=== PATIENT | female | born 1925 | race African-American/Black ===

== ENCOUNTER 2017-05-05 21:42 | Inpatient (IN) | payer MEDICARE, MEDICAID ==
[~2017-05-05] VITALS: Ht 160 cm; Wt 47.8 kg
[~2017-05-05 21:42] MED LIST: ASPI-1079 PO; ASPI-986 PO; CLOP75TA33 PO; DIPH50TA19 PO; ESOM5SUS PO; LORA0.5T2 PO; LORA1TAB PO; MEMA10TA2 PO; MULT-904 PO; MULT1TAB63 PO; NITR0.4T SL; OMEP40CA34 PO; SERT-112 PO; SERT25TA74 PO
[2017-05-05 22:36] LABS: BG BASE EXCESS -9.1 mmol/L (-2.0-2.0); BG CARBOXYHEMOGLOBIN 0.3 % (0.5-1.5); BG DEOXYHEMOGLOBIN 1.4 % (0.0-5.0); BG FRACTION INSPIRED OXYGEN 100; BG METHEMOGLOBIN 0.1 % (0.0-1.5); BG OXYGEN SATURATION 98.6 % (92.0-98.5); BG OXYHEMOGLOBIN 98.2 % (94.0-97.0); BG PCO2 31.9 mmHg (35.0-45.0); BG PH 7.318 (7.350-7.450); BG PO2 218.5 mmHg (75.0-100.0); BG SAMPLE SITE RIGHT RADIAL; BG TOTAL HEMOGLOBIN 9.8 g/dL (12.0-18.0); BG VENT MODE MASK - NRB
[2017-05-05 22:44] LABS: HEMATOCRIT. 33.4 % (36.0-48.0); HEMOGLOBIN. 10.7 g/dL (12.0-16.0); MEAN CORPUSCULAR HEMOGLOBIN 29.3 pg (28.0-32.0); MEAN CORPUSCULAR VOLUME 91.6 fL (81.0-99.0); MEAN PLATELET VOLUME 10.7 fl (7.4-10.4); PLATELET 235 x1000/uL (130-400); RED BLOOD CELL COUNT 3.65 mill/uL (4.2-5.4); RED CELL DISTRIBUTION WIDTH 18.4 % (11.6-14.6)
[2017-05-05 22:50] LABS: CHLORIDE 115 mEq/L (98-107)
[2017-05-05 22:54] LABS: CARBON DIOXIDE 18 mEq/L (21-32); INR 1.3; PROTHROMBIN TIME 13.5 sec (9.4-11.6)
[2017-05-05 22:58] LABS: PLATELET ESTIMATE NORMAL
[2017-05-05] MEDS ORDERED: VANCOMYCIN 1 G PREMIX 200 ML IV SCH (23:00)
[2017-05-06] VITALS (17 sets, daily range): BP systolic 93–122; BP diastolic 36–54
[2017-05-06] MEDS ORDERED: SODIUM CHLORIDE 0.9% 1,000 ML IV ONE (00:08)
[2017-05-06] MEDS ORDERED: PIPERACILLIN/TAZOBACTAM 3.375GM/50ML PREMIX IV SCH (00:23)
[2017-05-06] MEDS ORDERED: IPRATROPIUM/ALBUTEROL 0.5-3(2.5)MG/3ML NEB INH PRN (06:45)
[2017-05-06] MEDS ORDERED: GUAIFENESIN 200MG/10ML SUGAR FREE UDC PO PRN (06:45)
[2017-05-06 07:26] LABS: CLARITY URINE CLOUDY (CLEAR); COLOR URINE YELLOW (YELLOW); GLUCOSE URINE NEGATIVE (NEGATIVE); KETONES URINE NEGATIVE (NEGATIVE); LEUKOCYTE ESTERASE URINE TRACE (NEGATIVE); NITRITE URINE NEGATIVE (NEGATIVE); OCCULT BLOOD URINE TRACE (NEGATIVE); PH URINE 5.5 (4.5-8.0); PROTEIN URINE TRACE (NEGATIVE); SPECIFIC GRAVITY URINE 1.023 (1.005-1.030); UROBILINOGEN URINE 0.2 E.U./dL (0.2-1.0)
[2017-05-06] MEDS: DEXT 5%/0.45% NACL 1000ML 1,000 ML IV SCH ×2 (08:00→20:03)
[2017-05-06] MEDS: ASPIRIN 81MG EC TABLET PO SCH (09:00)
[2017-05-06] MEDS ORDERED: PIPERACILLIN/TAZ 3.375G PREMIX 50 ML IV SCH (09:00)
[2017-05-06] MEDS: ENOXAPARIN 30MG/0.3ML SYR SUBCUT SCH (09:50)
[2017-05-06] MEDS ORDERED: VANCOMYCIN 500 MG PREMIX 100 ML IV SCH ×2 (16:00→18:00)
[2017-05-06] MEDS: PIPERACILLIN/TAZ 2.25G PREMIX 50 ML IV SCH ×2 (17:23→23:51)
[2017-05-07] VITALS (11 sets, daily range): BP systolic 107–130; BP diastolic 46–57
[2017-05-07 06:35] LABS: HEMATOCRIT. 27.4 % (36.0-48.0); HEMOGLOBIN. 8.9 g/dL (12.0-16.0); MEAN CORPUSCULAR HEMOGLOBIN 29.5 pg (28.0-32.0); MEAN CORPUSCULAR VOLUME 90.4 fL (81.0-99.0); MEAN PLATELET VOLUME 10.9 fl (7.4-10.4); PLATELET 239 x1000/uL (130-400); RED BLOOD CELL COUNT 3.03 mill/uL (4.2-5.4); RED CELL DISTRIBUTION WIDTH 17.8 % (11.6-14.6)
[2017-05-07 07:10] LABS: CARBON DIOXIDE 17 mEq/L (21-32); CHLORIDE 117 mEq/L (98-107)
[2017-05-07 07:18] LABS: HDL CHOLESTEROL 30 mg/dL (40-59); LDL CHOLESTEROL 23 mg/dL (5-100)
[2017-05-07] MEDS: PIPERACILLIN/TAZ 2.25G PREMIX 50 ML IV SCH ×3 (07:47→22:24)
[2017-05-07] MEDS: DEXT 5%/0.45% NACL 1000ML 1,000 ML IV SCH ×2 (09:23→22:25)
[2017-05-07 10:15] LABS: BG BASE EXCESS -8.2 mmol/L (-2.0-2.0); BG FRACTION INSPIRED OXYGEN 21; BG HCO3 ACT 14.9 mmol/L (22.0-26.0); BG METHEMOGLOBIN 0.1 % (0.0-1.5); BG OXYHEMOGLOBIN 95.9 % (94.0-97.0); BG PCO2 23.5 mmHg (35.0-45.0); BG PH 7.421 (7.350-7.450); BG PO2 81.9 mmHg (75.0-100.0); BG SAMPLE SITE RIGHT BRACHIAL; BG TOTAL HEMOGLOBIN 9.3 g/dL (12.0-18.0); BG VENT MODE ROOM AIR
[2017-05-07] MEDS: ASPIRIN 81MG EC TABLET PO SCH (10:40)
[2017-05-07] MEDS: ENOXAPARIN 30MG/0.3ML SYR SUBCUT SCH (10:40)
[2017-05-07 11:59] LABS: PLATELET ESTIMATE NORMAL
[2017-05-07] MEDS ORDERED: KCL 20MEQ/100ML PREMIX 100 ML IV NR (13:00)
[2017-05-07] MEDS: VANCOMYCIN 500 MG PREMIX 100 ML IV SCH (14:15)
[2017-05-07] MEDS: ACETAMINOPHEN 325MG TABLET PO PRN (15:39)
[2017-05-08] VITALS (12 sets, daily range): BP systolic 110–140; BP diastolic 44–61
[2017-05-08] MEDS: ONDANSETRON HCL 4MG/2ML VIAL IV PRN (04:48)
[2017-05-08] MEDS: ACETAMINOPHEN 325MG TABLET PO PRN (04:48)
[2017-05-08] MEDS: PIPERACILLIN/TAZ 2.25G PREMIX 50 ML IV SCH ×3 (06:08→21:17)
[2017-05-08 07:14] LABS: CARBON DIOXIDE 17 mEq/L (21-32); CHLORIDE 119 mEq/L (98-107)
[2017-05-08] MEDS: VANCOMYCIN 500 MG PREMIX 100 ML IV SCH (08:16)
[2017-05-08] MEDS: ASPIRIN 81MG EC TABLET PO SCH (08:16)
[2017-05-08] MEDS: ENOXAPARIN 30MG/0.3ML SYR SUBCUT SCH (08:17)
[2017-05-08] MEDS: DEXT 5%/0.45% NACL 1000ML 1,000 ML IV SCH (08:17)
[2017-05-08] MEDS ORDERED: POTASSIUM CHLORIDE 20MEQ TABLET SR PO NR (11:45)
[2017-05-09] VITALS (12 sets, daily range): BP systolic 114–153; BP diastolic 52–71
[2017-05-09] MEDS: DEXT 5%/0.45% NACL 1000ML 1,000 ML IV SCH ×2 (02:19→13:49)
[2017-05-09] MEDS: VANCOMYCIN 500 MG PREMIX 100 ML IV SCH ×2 (02:19→20:06)
[2017-05-09] MEDS: PIPERACILLIN/TAZ 2.25G PREMIX 50 ML IV SCH ×3 (05:03→21:46)
[2017-05-09 05:47] LABS: HEMATOCRIT. 25.2 % (36.0-48.0); HEMOGLOBIN. 8.2 g/dL (12.0-16.0); MEAN CORPUSCULAR HEMOGLOBIN 29.4 pg (28.0-32.0); MEAN PLATELET VOLUME 10.9 fl (7.4-10.4); PLATELET 266 x1000/uL (130-400); RED CELL DISTRIBUTION WIDTH 18.2 % (11.6-14.6)
[2017-05-09 06:51] LABS: CARBON DIOXIDE 16 mEq/L (21-32); CHLORIDE 118 mEq/L (98-107)
[2017-05-09] MEDS: ASPIRIN 81MG EC TABLET PO SCH (08:53)
[2017-05-09] MEDS: ENOXAPARIN 30MG/0.3ML SYR SUBCUT SCH (09:01)
[2017-05-09] MEDS ORDERED: POTASSIUM CHLORIDE 20MEQ/PACKET PO NR (11:18)
[2017-05-09] MEDS ORDERED: MORPHINE SULFATE 2 MG/ML CPJ (NOT FOR IM USE) IV ONE (14:00)
[2017-05-09] MEDS: MORPHINE SULFATE 4 MG/ML CPJ (NOT FOR IM USE) IV PRN (14:12)
[2017-05-09 16:41] LABS: PLATELET ESTIMATE NORMAL
[2017-05-09] MEDS ORDERED: SODIUM CHLORIDE 10% FOR INH 15ML VIAL NEB INH NR (17:30)
[2017-05-10] VITALS (11 sets, daily range): BP systolic 129–158; BP diastolic 59–88
[2017-05-10] MEDS: MORPHINE SULFATE 4 MG/ML CPJ (NOT FOR IM USE) IV PRN (03:51)
[2017-05-10] MEDS: DEXT 5%/0.45% NACL 1000ML 1,000 ML IV SCH ×2 (04:03→17:23)
[2017-05-10] MEDS: PIPERACILLIN/TAZ 2.25G PREMIX 50 ML IV SCH ×3 (06:17→22:08)
[2017-05-10 06:18] LABS: HEMATOCRIT. 26.8 % (36.0-48.0); HEMOGLOBIN. 8.6 g/dL (12.0-16.0); MEAN CORPUSCULAR HEMOGLOBIN 29.4 pg (28.0-32.0); MEAN PLATELET VOLUME 10.5 fl (7.4-10.4); PLATELET 269 x1000/uL (130-400); RED BLOOD CELL COUNT 2.92 mill/uL (4.2-5.4); RED CELL DISTRIBUTION WIDTH 18.5 % (11.6-14.6)
[2017-05-10 07:09] LABS: CARBON DIOXIDE 16 mEq/L (21-32); CHLORIDE 116 mEq/L (98-107)
[2017-05-10] MEDS: ASPIRIN 81MG EC TABLET PO SCH (09:32)
[2017-05-10] MEDS: ENOXAPARIN 30MG/0.3ML SYR SUBCUT SCH (09:33)
[2017-05-10] MEDS: VANCOMYCIN 500 MG PREMIX 100 ML IV SCH (15:29)
[2017-05-10 16:32] LABS: PLATELET ESTIMATE NORMAL
[2017-05-11] VITALS (13 sets, daily range): BP systolic 120–162; BP diastolic 60–73
[2017-05-11] MEDS: CLONIDINE 0.1MG TABLET PO PRN (05:02)
[2017-05-11] MEDS: PIPERACILLIN/TAZ 2.25G PREMIX 50 ML IV SCH ×3 (06:02→23:26)
[2017-05-11] MEDS: DEXT 5%/0.45% NACL 1000ML 1,000 ML IV SCH ×2 (06:54→23:27)
[2017-05-11] MEDS: ASPIRIN 81MG EC TABLET PO SCH (08:41)
[2017-05-11] MEDS: VANCOMYCIN 500 MG PREMIX 100 ML IV SCH (08:41)
[2017-05-11] MEDS: ENOXAPARIN 30MG/0.3ML SYR SUBCUT SCH (08:41)
[2017-05-11] MEDS ORDERED: LIDOCAINE HCL 1% 20ML VIAL (Pyxis) INJ ONE (15:04)
[2017-05-11 17:01] LABS: HEMATOCRIT. 33.1 % (36.0-48.0); HEMOGLOBIN. 10.7 g/dL (12.0-16.0); MEAN CORPUSCULAR HEMOGLOBIN 29.4 pg (28.0-32.0); MEAN CORPUSCULAR VOLUME 91.2 fL (81.0-99.0); MEAN PLATELET VOLUME 10.6 fl (7.4-10.4); PLATELET 330 x1000/uL (130-400); RED BLOOD CELL COUNT 3.63 mill/uL (4.2-5.4); RED CELL DISTRIBUTION WIDTH 18.6 % (11.6-14.6)
[2017-05-11 18:11] LABS: PLATELET ESTIMATE NORMAL
[2017-05-12] VITALS (10 sets, daily range): BP systolic 114–164; BP diastolic 54–86
[2017-05-12] MEDS: VANCOMYCIN 500 MG PREMIX 100 ML IV SCH ×2 (02:18→20:36)
[2017-05-12] MEDS: ENOXAPARIN 30MG/0.3ML SYR SUBCUT SCH (09:15)
[2017-05-12] MEDS: ASPIRIN 81MG EC TABLET PO SCH (09:15)
[2017-05-12] MEDS: MORPHINE SULFATE 4 MG/ML CPJ (NOT FOR IM USE) IV PRN ×2 (09:21→18:42)
[2017-05-12] MEDS: DEXT 5%/0.45% NACL 1000ML 1,000 ML IV SCH (09:23)
[2017-05-12 12:11] LABS: HEMATOCRIT. 31.1 % (36.0-48.0); HEMOGLOBIN. 10.2 g/dL (12.0-16.0); MEAN CORPUSCULAR HEMOGLOBIN 29.8 pg (28.0-32.0); MEAN CORPUSCULAR VOLUME 90.5 fL (81.0-99.0); MEAN PLATELET VOLUME 9.7 fl (7.4-10.4); PLATELET 302 x1000/uL (130-400); RED BLOOD CELL COUNT 3.43 mill/uL (4.2-5.4); RED CELL DISTRIBUTION WIDTH 18.7 % (11.6-14.6)
[2017-05-12] MEDS: PIPERACILLIN/TAZ 2.25G PREMIX 50 ML IV SCH ×2 (14:36→22:11)
[2017-05-12 14:53] LABS: PLATELET ESTIMATE NORMAL
[2017-05-12] MEDS: CLONIDINE 0.1MG TABLET PO PRN (22:17)
[2017-05-12] MEDS: ONDANSETRON HCL 4MG/2ML VIAL IV PRN (22:17)
[2017-05-12] MEDS: ACETAMINOPHEN 325MG TABLET PO PRN (22:23)
[2017-05-13] VITALS (12 sets, daily range): BP systolic 116–160; BP diastolic 47–69
[2017-05-13] MEDS: DEXT 5%/0.45% NACL 1000ML 1,000 ML IV SCH ×2 (02:49→13:26)
[2017-05-13] MEDS: PIPERACILLIN/TAZ 2.25G PREMIX 50 ML IV SCH ×3 (05:04→22:05)
[2017-05-13] MEDS: ENOXAPARIN 30MG/0.3ML SYR SUBCUT SCH (08:55)
[2017-05-13] MEDS: ASPIRIN 81MG EC TABLET PO SCH (08:55)
[2017-05-13] MEDS ORDERED: DEXTROSE 50% WATER 50ML SYRINGE IV PRN (13:30)
[2017-05-13] MEDS: VANCOMYCIN 500 MG PREMIX 100 ML IV SCH (14:30)
[2017-05-13] MEDS: MORPHINE SULFATE 4 MG/ML CPJ (NOT FOR IM USE) IV PRN ×2 (14:31→20:10)
[2017-05-13 16:10] LABS: CARBON DIOXIDE 15 mEq/L (21-32); CHLORIDE 112 mEq/L (98-107)
[2017-05-13 16:26] LABS: HEMATOCRIT. 28.4 % (36.0-48.0); HEMOGLOBIN. 9.2 g/dL (12.0-16.0); MEAN CORPUSCULAR HEMOGLOBIN 29.4 pg (28.0-32.0); MEAN PLATELET VOLUME 10.3 fl (7.4-10.4); PLATELET 303 x1000/uL (130-400); RED BLOOD CELL COUNT 3.13 mill/uL (4.2-5.4); RED CELL DISTRIBUTION WIDTH 18.1 % (11.6-14.6)
[2017-05-13 17:17] LABS: PLATELET ESTIMATE NORMAL
[2017-05-13] MEDS: BLOOD SUGAR DIAGNOSTIC STRIP TEST SCH ×2 (18:28→20:08)
[2017-05-13] MEDS ORDERED: POTASSIUM CHLORIDE 20MEQ TABLET SR PO NR (21:00)
[2017-05-14] VITALS (11 sets, daily range): BP systolic 121–191; BP diastolic 54–74
[2017-05-14] MEDS: MORPHINE SULFATE 4 MG/ML CPJ (NOT FOR IM USE) IV PRN ×2 (02:06→12:19)
[2017-05-14] MEDS: PIPERACILLIN/TAZ 2.25G PREMIX 50 ML IV SCH (05:16)
[2017-05-14 07:46] LABS: CARBON DIOXIDE 12 mEq/L (21-32); CHLORIDE 112 mEq/L (98-107); VANCOMYCIN TROUGH 22.6 ug/mL (5.0-10.0)
[2017-05-14] MEDS: BLOOD SUGAR DIAGNOSTIC STRIP TEST SCH ×3 (07:57→16:40)
[2017-05-14] MEDS: VANCOMYCIN 500 MG PREMIX 100 ML IV SCH (08:51)
[2017-05-14] MEDS: ASPIRIN 81MG EC TABLET PO SCH (08:51)
[2017-05-14] MEDS: ENOXAPARIN 30MG/0.3ML SYR SUBCUT SCH (08:52)
[2017-05-14] MEDS: DEXT 5%/0.45% NACL 1000ML 1,000 ML IV SCH ×2 (08:52→14:43)
[2017-05-14] MEDS ORDERED: PIPERACILLIN/TAZ 2.25G PREMIX 50 ML IV SCH (14:00)
[2017-05-15] MEDS ORDERED: VANCOMYCIN 500 MG PREMIX 100 ML IV SCH (09:00)
== END 2017-05-14 18:58 | DRG 871 ==
LOC: ER 22:03 → 5EST 05-06 01:13 → EDBEDREQTM 05-06 01:16 → EDBEDREQ 05-06 01:16 → 5EST 05-10 23:18
PROVIDERS: ADMIT Hospitalist; ATTEND Hospitalist
PROC: 02HV33Z Insertion of Infusion Device into Superior Vena Cava, Percutaneous Approach (ICD-10-PCS; principal; 2017-05-11)
PROC: B548ZZA Ultrasonography of Superior Vena Cava, Guidance (ICD-10-PCS; 2017-05-11)
DX: A41.9 Sepsis, unspecified organism (principal); J69.0 Pneumonitis due to inhalation of food and vomit; J96.00 Acute respiratory failure, unspecified whether with hypoxia or hypercapnia; E43 Unspecified severe protein-calorie malnutrition; G93.41 Metabolic encephalopathy; R16.0 Hepatomegaly, not elsewhere classified; N39.0 Urinary tract infection, site not specified; Z68.1 Body mass index [BMI] 19.9 or less, adult; D64.9 Anemia, unspecified; F03.90 Unspecified dementia, unspecified severity, without behavioral disturbance, psychotic disturbance, mood disturbance, and anxiety; N18.9 Chronic kidney disease, unspecified; E11.22 Type 2 diabetes mellitus with diabetic chronic kidney disease; I12.9 Hypertensive chronic kidney disease with stage 1 through stage 4 chronic kidney disease, or unspecified chronic kidney disease; Z86.73 Personal history of transient ischemic attack (TIA), and cerebral infarction without residual deficits; Z88.8 Allergy status to other drugs, medicaments and biological substances
CPT/HCPCS: 36415; 36569; 36600; 70450; 71010; 74000; 76700; 76937; 80048; 80053; 80061; 80202; 81001; 82375; 82805; 82962; 83605; 83735; 84145; 84484; 85025; 85610; 87040; 87086; 92610; 93005; 93970; 96365; 96366; 96375; 97162; 97165; 97530; 99285; A6261; C1725; C1893; J1650; J2270; J2405; J2543; J3370; J3480; J3490; J7030; J7042; J7131

== ENCOUNTER 2017-06-13 18:19 | Emergency (ER) | payer MEDICARE, MEDICAID ==
[~2017-06-13] VITALS: Ht 157.5 cm; Wt 60.0 kg
[~2017-06-13 18:19] MED LIST changes: -ASPI-1079 PO; -ASPI-986 PO; +CALCIUM CHLORIDE 1GM/10ML SYR IV ONE; -CLOP75TA33 PO; +DEXTROSE 50% WATER 50ML SYRINGE IV ONE; -DIPH50TA19 PO; +EPINEPHRINE 0.1MG/ML (1:10,000) 10ML SYR ONE; -ESOM5SUS PO; +ETOMIDATE 2MG/ML 10ML VIAL IV ONE; -LORA0.5T2 PO; -LORA1TAB PO; -MEMA10TA2 PO; -MULT-904 PO; -MULT1TAB63 PO; -NITR0.4T SL; -OMEP40CA34 PO; -SERT-112 PO; -SERT25TA74 PO; +SODIUM BICARBONATE 7.5% 0.9 MEQ/ML 50ML SYR IV ONE; +SUCCINYLCHOLINE CHLORIDE 200MG/10ML VIAL IV ONE
[2017-06-13] MEDS ORDERED: PHENYLEPHRINE 10 MG in DEXTROSE 5% WATER 250 ML IV PRN (18:45)
[2017-06-13] MEDS ORDERED: PHENYLEPHRINE 20 MG in DEXTROSE 5% WATER 250 ML IV PRN (18:45)
[2017-06-13] MEDS ORDERED: PHENYLEPHRINE 20 MG in DEXT 5% WATER 248 ML IV PRN (18:45)
[2017-06-13] MEDS ORDERED: SODIUM CHLORIDE 0.9% 1000ML BAG (SEPSIS BOLUS) IV ONE (19:00)
[2017-06-13] MEDS ORDERED: PIPERACILLIN/TAZ 3.375G PREMIX 50 ML IV ONE (19:00)
[2017-06-13] MEDS ORDERED: DEXTROSE 50% WATER 50ML SYRINGE IV ONE ×4 (19:00→20:48)
[2017-06-13] MEDS ORDERED: VANCOMYCIN 1 G PREMIX 200 ML IV ONE (19:00)
[2017-06-13] MEDS ORDERED: PHENYLEPHRINE 10 MG in DEXT 5% WATER 249 ML IV STA (19:08)
[2017-06-13 19:34] LABS: MEAN CORPUSCULAR HEMOGLOBIN 30.4 pg (28.0-32.0); MEAN CORPUSCULAR VOLUME 104.1 fL (81.0-99.0); MEAN PLATELET VOLUME 9.9 fl (7.4-10.4); PLATELET 126 x1000/uL (130-400); RED BLOOD CELL COUNT 1.44 mill/uL (4.2-5.4); RED CELL DISTRIBUTION WIDTH 17.6 % (11.6-14.6)
[2017-06-13 19:40] LABS: HEMOGLOBIN. 4.4 g/dL (12.0-16.0)
[2017-06-13 19:41] LABS: CARBON DIOXIDE 12 mEq/L (21-32); CHLORIDE 118 mEq/L (98-107)
[2017-06-13 19:46] LABS: INR 2.1; PROTHROMBIN TIME 21.6 sec (9.4-11.6)
[2017-06-13 19:51] LABS: TROPONIN I 0.62 ng/mL (0.00-0.04)
[2017-06-13 20:01] LABS: PARTIAL THROMBOPLASTIN TIME 74.5 sec (23.4-31.0); PLATELET ESTIMATE DECREASED
[2017-06-13 20:02] LABS: BG FRACTION INSPIRED OXYGEN 100; BG HCO3 ACT 7.3 mmol/L (22.0-26.0); BG PCO2 26.4 mmHg (35.0-45.0); BG PO2 64.2 mmHg (75.0-100.0); BG SAMPLE SITE LEFT BRACHIAL; BG TIDAL VOLUME(mL) 500 mL; BG TOTAL HEMOGLOBIN < 4.5 g/dL (12.0-18.0); BG VENT MODE VENT - A/C; BG VENT RATE 12 set
[2017-06-13 20:15] VITALS: BP 55/46
[2017-06-13] MEDS ORDERED: SODIUM BICARBONATE 8.4% 1 MEQ/ML 50ML SYR IV ONE (20:30)
[2017-06-13] MEDS ORDERED: DOPAMINE 400MG PREMIX 250 ML IV ONE (20:30)
[2017-06-13] MEDS ORDERED: EPINEPHRINE 0.1MG/ML (1:10,000) 10ML SYR ONE (20:46)
== END 2017-06-13 20:43 | disposition expired ==
LOC: ER 18:19 → CANRESERV 18:55 → ENRESERV 18:55 → ER 20:43 → CANRESERV 20:46 → ENRESERV 20:46 → EDBEDREQ 20:48 → CANBEDREQ 20:54 → ER 23:13
DX: A41.9 Sepsis, unspecified organism (principal); R65.21 Severe sepsis with septic shock; J96.90 Respiratory failure, unspecified, unspecified whether with hypoxia or hypercapnia; E87.4 Mixed disorder of acid-base balance; K92.2 Gastrointestinal hemorrhage, unspecified; D69.6 Thrombocytopenia, unspecified; R79.9 Abnormal finding of blood chemistry, unspecified; R94.31 Abnormal electrocardiogram [ECG] [EKG]; D64.89 Other specified anemias; Z86.73 Personal history of transient ischemic attack (TIA), and cerebral infarction without residual deficits; Z87.01 Personal history of pneumonia (recurrent); Z87.448 Personal history of other diseases of urinary system
CPT/HCPCS: 31500; 36415; 36430; 36556; 36600; 71010; 80053; 82375; 82805; 82962; 83605; 83880; 84484; 85025; 85610; 85730; 86850; 86900; 86901; 86920; 87040; 87077; 87186; 92950; 93005; 96365; 96366; 96368; 96375; 99291; J0171; J0330; J2370; J2543; J3370; J3490; J7030; P9016; 94002; 99285; J7060